=== PATIENT | male | born 1960 | race Caucasian/White ===

== ENCOUNTER 2022-03-01 11:01 | Emergency (ER) | payer OTHER ==
[2022-03-01 13:33] LABS: BASOPHIL 0.7 % (0-2); EOSINOPHIL 0.7 % (0-5); HCT 41.7 % (42.0-52.0); HGB 14.1 g/dl (13.2-18.0); LYMPHOCYTE 21.7 % (15-48); MCH 32.6 pg (25.0-31.0); MCHC 33.8 g/dL (32.0-36.0); MCV 96.3 fL (78.0-100.0); MONOCYTE 4.9 % (0-12); MPV 9.5 fL (6.0-9.5); NEUTROPHIL 71.8 % (41-80); NRBC 0; PLT 278 K/uL (150-400); RBC 4.33 M/uL (4.70-6.00); RDW 12.7 % (11.5-14.0); WBC 5.3 K/uL (4.0-10.5)
[2022-03-01 13:53] LABS: CORONAVIRUS 2019 SARS-COV-2 NEGATIVE (NEGATIVE); INFLUENZA A NAA NEGATIVE (NEGATIVE)
[2022-03-01 14:04] LABS: ALBUMIN 3.7 g/dL (3.4-5.0); BILIRUBIN - TOTAL 0.5 mg/dL (0.2-1.0); BUN/CREAT RATIO (CALC) 17.8 RATIO; CREATININE 0.9 mg/dL (0.67-1.17); GLOBULIN (CALCULATION) 4.2 g/dL; POTASSIUM 4.1 mmol/L (3.5-5.1); TOTAL PROTEIN 7.9 g/dL (6.4-8.2)
[2022-03-01] MEDS ORDERED: MEDROL 4MG DOSEP4 MG PO (15:21)
[2022-03-01] MEDS ORDERED: AMOX TR-K CLV1 EAC4 PO (15:21)
== END 2022-03-01 16:50 | disposition home or self-care (01) ==
LOC: FER 11:01
PROVIDERS: Nurse Practitioner Family
DX: J06.9 Acute upper respiratory infection, unspecified (principal); Z88.8 Allergy status to other drugs, medicaments and biological substances; Z20.822 Contact with and (suspected) exposure to COVID-19
CPT/HCPCS: 36415; 71045; 80053; 85025; J1885; U0002